=== PATIENT | male | born 1940 | race Caucasian/White ===

== ENCOUNTER → 2017-01-07 | Outpatient (CLI) | payer MEDICARE | END | disposition home or self-care (01) | LOC: PCVCCLINIC 10:00 | PROVIDERS: ATTEND Internal Medicine Cardiovascular Disease | DX: I65.23 Occlusion and stenosis of bilateral carotid arteries (principal); I35.0 Nonrheumatic aortic (valve) stenosis; I25.10 Atherosclerotic heart disease of native coronary artery without angina pectoris; E78.00 Pure hypercholesterolemia, unspecified; I10 Essential (primary) hypertension; R53.83 Other fatigue; Z95.2 Presence of prosthetic heart valve | CPT/HCPCS: 80061; 93005; 93880; G0463 ==

== ENCOUNTER → 2017-01-29 | Outpatient (CLI) | payer MEDICARE ==
[~2017-01-29] MED LIST: REGADENOSON 0.4 MG/5 ML DISP.SYRIN. IV ONE
== END | disposition home or self-care (01) ==
LOC: PCVCIMAG 16:00
PROVIDERS: ATTEND Internal Medicine Cardiovascular Disease
DX: I25.10 Atherosclerotic heart disease of native coronary artery without angina pectoris (principal); Z95.2 Presence of prosthetic heart valve
CPT/HCPCS: 93306; J2785

== ENCOUNTER → 2017-12-09 | Outpatient (CLI) | payer MEDICARE | END | disposition home or self-care (01) | LOC: PCVCCLINIC 15:20 | DX: I25.10 Atherosclerotic heart disease of native coronary artery without angina pectoris (principal); I10 Essential (primary) hypertension; E78.00 Pure hypercholesterolemia, unspecified; D68.59 Other primary thrombophilia; R94.31 Abnormal electrocardiogram [ECG] [EKG]; Z95.2 Presence of prosthetic heart valve; Z79.82 Long term (current) use of aspirin; Z79.899 Other long term (current) drug therapy | CPT/HCPCS: 36415; 80061; 93005; G0463 ==

== ENCOUNTER → 2018-07-22 | Outpatient (CLI) | payer MEDICARE ==
--- NOTE | 2018-07-22 14:20 | PCVCIMAG ---
APPROVED REPORT Study performed: 07/22/2018 10:04:36 EXAM: Comprehensive 2D, Doppler, and color-flow Echocardiogram Patient Location: Echo lab Status: routine BSA: 2.07 BP: 140/80 mmHg Rhythm: NSR Other Information Study Quality: Adequate Risk Factors: Cardiac Risk Factors: HTN, Hyperlipidemia Indications CAD #23 Juan David Mechanical Aortic Valve, Stent, Carotid Disease 2D Dimensions IVSd: 18.98 (7-11mm)LVOT Diam: 23.08 (18-24mm) LVDd: 34.80 mm PWd: 17.38 (7-11mm)Ascending Ao: 45.69 (22-36mm) LVDs: 30.07 (25-40mm) Left Atrium: 46.92 (27-40mm) Aortic Root: 31.82 mm LV Single Plane 4CH: 60.23 % LV Single Plane 2CH: 63.24 % Biplane EF: 62.3 % Volumes Left Atrial Volume (Systole) Single Plane 4CH: 86.55 mLSingle Plane 2CH: 64.52 mL LA ESV Index: 39.00 mL/m2 Aortic Valve AoV Peak Dale.: 1.97 m/s AO Peak Gr.: 15.60 mmHgLVOT Max P.86 mmHg AO Mean Gr.: 8.91 mmHgLVOT Mean P.19 mmHg AO V2 Mean: 1.42 m/sLVOT Max V: 1.48 m/s AO V2 VTI: 45.29 cm SHAHRZAD (VTI): 3.04 [id number] V1 VTI: 32.96 cm SHAHRZAD Vmax: 3.13 cm2 Mitral Valve E/A Ratio: 1.5 MV Decel. Time: 263.29 ms MV E Max Dale.: 0.86 m/s MV A Dale.: 0.58 m/s MV PHT: 76.35 ms TDI E/Lateral E': 12.29E/Medial E': 9.56 Medial E' Dale.: 0.09 m/s Lateral E' Dale.: 0.07 m/s Pulmonary Valve PV Peak Gr.: 2.47 mmHg Tricuspid Valve TR Peak Dale.: 2.77 m/s TR Peak Gr.: 30.69 mmHg Left Ventricle The left ventricle is normal size. There is normal LV segmental wall motion. Mild concentric left ventricular hypertrophy. Left ventricular systolic function is normal. The left ventricular ejection fraction is within the normal range. LVEF is 50-55%. The left ventricular diastolic function is normal. Right Ventricle The right ventricle is normal size. The right ventricular systolic function is normal. Atria Left atrium is mildly dilated. The right atrium size is normal. Aortic Valve #23 Juan David Mechanical Valve. Mild aortic regurgitation. There is no aortic valvular stenosis. Mitral Valve The mitral valve is normal in structure. Mild mitral regurgitation. No evidence of mitral valve stenosis. Tricuspid Valve The tricuspid valve is normal in structure. Mild tricuspid regurgitation. Pulmonary artery pressure is 38mmHg. Pulmonic Valve The pulmonary valve is normal in structure. There is no pulmonic valvular regurgitation. Great Vessels The aortic root is normal in size. The ascending aorta is dilated measuring 4.7cm. IVC is normal in size and collapses >50% with inspiration. Pericardium There is no pericardial effusion. <Conclusion> The left ventricle is normal size. LVEF is 50-55%. The left ventricular diastolic function is normal. The right ventricle is normal size. Left atrium is mildly dilated. #23 Juan David Mechanical Valve. Mild aortic regurgitation. There is no aortic valvular stenosis. Mild mitral regurgitation. Mild tricuspid regurgitation. Pulmonary artery pressure is 38mmHg. The aortic root is normal in size. There is no pericardial effusion.
== END | disposition home or self-care (01) ==
LOC: PCVCIMAG 10:48
PROVIDERS: ATTEND Internal Medicine Cardiovascular Disease
DX: I08.3 Combined rheumatic disorders of mitral, aortic and tricuspid valves (principal); I25.10 Atherosclerotic heart disease of native coronary artery without angina pectoris; E78.5 Hyperlipidemia, unspecified; I10 Essential (primary) hypertension; E78.00 Pure hypercholesterolemia, unspecified; I65.23 Occlusion and stenosis of bilateral carotid arteries; Z86.2 Personal history of diseases of the blood and blood-forming organs and certain disorders involving the immune mechanism; Z95.2 Presence of prosthetic heart valve; Z79.82 Long term (current) use of aspirin; Z79.01 Long term (current) use of anticoagulants
CPT/HCPCS: 80061; 93005; 93306; G0463

== ENCOUNTER → 2019-01-22 | Outpatient (CLI) | payer MEDICARE ==
--- NOTE | 2019-01-23 10:29 | PCVCIMAG ---
APPROVED REPORT Imaging Protocol: Rest Tc-99m/Stress Tc-99m 1 day Study performed: 01/22/2019 09:33:08 Indication: CAD Patient Location: Out-Patient Stress Nurse: Audrey Campbell RN, Roya Manzo RN RI Tech:Gustavo Barragan NMRAULB Ht: 5 ft 11 in Wt: 191 lbs BSA: 2.07 m2 HR: 67 bpm BP: 163/77 mmHg BMI: 26.6 Rhythm: Sinus Rhythm, First Degree AV Block, PVC's Medical History Medical History: Age, Hyperlipidemia, HTN, CVD, Prior AVR Medications: Norvasc, ASA, Vytorin, Bystolic, Cialis, Coumadin Allergies: PCN Previous Cardiac Procedures: PCI Pretest Chest Pain Characteristics: No chest pain Exercise History: Sedentary Meds Held (24 hrs): Bystolic, Cialis Resting Data Rest SPECT myocardial perfusion imaging was performed in supine position 45 minutes following the intravenous injection of 11.2 mCi of Tc-99m Sestamibi. Time of rest injection: 0930 Date: 01/22/2019 Administration Route: IV Administration Site: Left AC Pharmacologic Stress Pharmacologic stress test was performed by injecting Regadenoson 0.4 mg IV push over 10-15 seconds immediately followed by the intravenous injection of 35 mCi of Tc-99m Sestamibi. Time of stress injection: 1100 Date: 01/22/2019 Administration Route: IV Administration Site: Left AC Gated Stress SPECT was performed 45 minutes after stress injection. The images were gated to evaluate regional wall motion and calculate left ventricular ejection fraction. Stress Test Details Stress Test: Pharmacologic stress testing performed using 0.4 mg of regadenoson per 5 mL given IV over 10 seconds. Reason for pharmacologic stress test: physical limitation. HRMax Heart Rate (APMHR): 141 bpm Resting HR: 67 bpmTarget HR (85% APMHR): 119 bpm Max HR Achieved: 81 bpm % of APMHR: 57 Recovery HR: 77 bpm BP Resting BP: 163/77 mmHg Max BP: 165/72 mmHg Recovery BP: 134/75 mmHg ECG Resting ECG: Sinus Rhythm, 1st degree AV block Stress ECG: Sinus Rhythm, 1st degree AV block, Sinus pauses ST Change: None Arrhythmia: Multifocal PVC's Recovery ECG: Sinus Rhythm, 1st degree AV block Clinical Reason for Termination: Completed protocol Stress Symptoms: Dyspnea Exercise duration: min 55 sec Symptoms resolved with caffeine. Stress ECG Conclusion ECG: Non-ischemic Study Quality Study: Good Study Data Post stress, the left ventricular ejection was 68%.. SSS: 3 SRS: 7 SDS: 0 TID = 1.04. Perfusion No evidence of stress induced ischemia or prior myocardial infarction. Wall Motion Normal left ventricular size and function with no regional wall motion abnormalities. Nuclear Conclusion No evidence of stress induced ischemia or prior myocardial infarction. Normal left ventricular size and function with no regional wall motion abnormalities. Post stress, the left ventricular ejection was 68%. No change since prior study dated June 2016. Interpreted by: Matt Hayden MD Electronically Approved: 01/22/2019 14:19:18 <Conclusion> ECG: Non-ischemic
== END | disposition home or self-care (01) ==
LOC: PCVCIMAG 09:05
PROVIDERS: ATTEND Internal Medicine Cardiovascular Disease
DX: I25.10 Atherosclerotic heart disease of native coronary artery without angina pectoris (principal); E78.00 Pure hypercholesterolemia, unspecified; R53.83 Other fatigue; N52.9 Male erectile dysfunction, unspecified; Z95.2 Presence of prosthetic heart valve
CPT/HCPCS: 78452; 93017; A9500; G0463; J2785